=== PATIENT | female | born 1955 | race Hispanic/Latino ===

== ENCOUNTER 2018-11-24 20:08 | Emergency (ER) | payer MEDICARE ==
[2018-11-24 20:52] LABS: BASOPHILS % (AUTO) 0.9 % (0.0-5.0); EOSINOPHILS % (AUTO) 2.9 % (0.0-8.0); HEMATOCRIT 45.5 % (36-48); LYMPHOCYTES % (AUTO) 31.6 % (21.0-51.0); MEAN CORPUSCULAR HEMOGLOBIN 28.5 pg (27.0-33.0); MEAN CORPUSCULAR HGB CONC 33.1 g/dL (32.0-36.0); MEAN CORPUSCULAR VOLUME 86.1 fL (79-99); MONOCYTES % (AUTO) 9.4 % (3.0-13.0); NEUTROPHILS % (AUTO) 55.2 % (40.0-77.0); PLATELET COUNT (AUTO) 172 K/uL (130-400); RED BLOOD CELL COUNT(AUTO) 5.29 MIL/uL (4.00-5.50); RED CELL DISTRIBUTION WIDTH 14.2 % (11.0-15.5); WHITE BLOOD COUNT (AUTO) 10.9 K/uL (4.8-10.8)
[2018-11-24 21:00] LABS: POTASSIUM 4.5 mmol/L (3.5-5.1)
[2018-11-24 21:02] LABS: INR 0.91 (0.85-1.15); PARTIAL THROMBOPLASTIN TIME 28.5 SEC (26.3-35.5); PROTHROMBIN TIME 9.6 SEC (9.6-11.6)
[2018-11-24] MEDS ORDERED: ASPIRIN 325 MG TABLET ONE (21:03)
[2018-11-24] MEDS ORDERED: NITROGLYCERIN 0.4 MG SL TAB SL ONE (21:03)
[2018-11-24 21:10] LABS: ALBUMIN 3.5 g/dL (3.5-5.0); BILIRUBIN,TOTAL 0.4 mg/dL (0.2-1.0); TOTAL PROTEIN, SERUM 8.3 g/dL (6.0-8.3)
[2018-11-24] MEDS ORDERED: AZITHROMYCIN 250 MG TABLET PO ONE (22:46)
== END 2018-11-24 23:04 | disposition home or self-care (01) ==
LOC: EDH 20:08
DX: J20.9 Acute bronchitis, unspecified (principal); I10 Essential (primary) hypertension; F32.9 Major depressive disorder, single episode, unspecified; Z88.0 Allergy status to penicillin
CPT/HCPCS: 36415; 71045; 80053; 82550; 83874; 84484; 85025; 85610; 85730; 93005

== ENCOUNTER → 2019-04-10 | Outpatient (CLI) | payer MEDICARE | END | disposition home or self-care (01) | LOC: OIH 10:17 | PROVIDERS: ATTEND Family Medicine | DX: R05 Cough (principal); M47.815 Spondylosis without myelopathy or radiculopathy, thoracolumbar region | CPT/HCPCS: 71046 ==

== ENCOUNTER 2019-10-15 14:20 | Emergency (ER) | payer MEDICARE ==
[2019-10-15 14:58] LABS: EOSINOPHILS % (AUTO) 16.8 % (0.0-8.0); HEMATOCRIT 44.5 % (36-48); LYMPHOCYTES % (AUTO) 20.7 % (21.0-51.0); MEAN CORPUSCULAR HEMOGLOBIN 27.2 pg (27.0-33.0); MEAN CORPUSCULAR HGB CONC 32.8 g/dL (32.0-36.0); MONOCYTES % (AUTO) 14.2 % (3.0-13.0); NEUTROPHILS % (AUTO) 47.1 % (40.0-77.0); PLATELET COUNT (AUTO) 171 K/uL (130-400); RED BLOOD CELL COUNT(AUTO) 5.36 MIL/uL (4.00-5.50); RED CELL DISTRIBUTION WIDTH 13.1 % (11.0-15.5); WHITE BLOOD COUNT (AUTO) 8.3 K/uL (4.8-10.8)
[2019-10-15 15:17] LABS: CREATININE 1.1 mg/dL (0.5-1.5); POTASSIUM 3.7 mmol/L (3.5-5.1)
[2019-10-15 15:22] LABS: ALBUMIN 3.6 g/dL (3.5-5.0); BILIRUBIN,TOTAL 0.4 mg/dL (0.2-1.0); TOTAL PROTEIN, SERUM 8.4 g/dL (6.0-8.3)
[2019-10-15] MEDS ORDERED: OSELTAMIVIR PHOSPHATE 75 MG CAP ONE (15:32)
[2019-10-15] MEDS ORDERED: ACETAMINOPHEN 325 MG TAB ONE (15:32)
== END 2019-10-15 15:42 | disposition home or self-care (01) ==
LOC: EDH 14:20
DX: J10.1 Influenza due to other identified influenza virus with other respiratory manifestations (principal); I10 Essential (primary) hypertension; M19.90 Unspecified osteoarthritis, unspecified site; F32.9 Major depressive disorder, single episode, unspecified
CPT/HCPCS: 36415; 71046; 80053; 85025; 87804

== ENCOUNTER 2020-09-01 11:25 | Inpatient (IN) | payer MEDICARE ==
[~2020-09-01] VITALS: Ht 162.6 cm; Wt 72.6 kg
[2020-09-01 12:18] LABS: BASOPHILS % (AUTO) 0.3 % (0.0-5.0); EOSINOPHILS % (AUTO) 0.3 % (0.0-8.0); HEMATOCRIT 45.2 % (36-48); LYMPHOCYTES % (AUTO) 26.9 % (21.0-51.0); MEAN CORPUSCULAR HEMOGLOBIN 27.7 pg (27.0-33.0); MEAN CORPUSCULAR HGB CONC 33.2 g/dL (32.0-36.0); MEAN CORPUSCULAR VOLUME 83.5 fL (79-99); MONOCYTES % (AUTO) 11.3 % (3.0-13.0); PLATELET COUNT (AUTO) 129 K/uL (130-400); RED BLOOD CELL COUNT(AUTO) 5.41 MIL/uL (4.00-5.50); RED CELL DISTRIBUTION WIDTH 12.9 % (11.0-15.5)
[2020-09-01 12:29] LABS: CARBON DIOXIDE 25 mmol/L (21-32); CHLORIDE 96 mmol/L (101-111); CREATININE 1.1 mg/dL (0.5-1.5); GLOMERULAR FILTR. RATE CALC 53 mL/min (>60); GLUCOSE,RANDOM 99 mg/dL (70-105); POTASSIUM 3.6 mmol/L (3.5-5.1); SODIUM SERUM 134 mmol/L (136-145); UREA NITROGEN, BLOOD 14 mg/dL (7-18)
[2020-09-01 12:32] LABS: INR 1.01 (0.85-1.15); PROTHROMBIN TIME 10.8 SEC (9.6-11.6)
[2020-09-01 12:33] LABS: PARTIAL THROMBOPLASTIN TIME 31.4 SEC (26.3-35.5)
[2020-09-01 12:38] LABS: BILIRUBIN,URINE Negative (NEGATIVE); COLOR,URINE Yellow (YELLOW); GLUCOSE, URINE (UA) Negative (NEGATIVE); KETONES,URINE 15 mg/dL (NEGATIVE); LEUKOCYTE ESTERASE ,URINE Trace (NEGATIVE); NITRATE,URINE Negative (NEGATIVE); OCCULT BLOOD,URINE Large (NEGATIVE); PH,URINE 5.5 (5.0-8.0); PROTEIN,URINE POS 2+ mg/dL (NEGATIVE)
[2020-09-01 12:40] LABS: ALANINE AMINOTRANSFERASE 38 U/L (12-78); ALBUMIN 3.3 g/dL (3.5-5.0); ASPARTATE AMINOTRANSFERASE 46 U/L (10-37); BILIRUBIN,TOTAL 0.5 mg/dL (0.2-1.0); CREATINE KINASE, TOTAL 204 U/L (21-232); MYOGLOBIN 81 ng/mL (10-92); TOTAL PROTEIN, SERUM 7.9 g/dL (6.0-8.3); TROPONIN I < 0.04 ng/mL (0.00-0.06)
[2020-09-01 13:05] LABS: APPEARANCE,URINE CLEAR (CLEAR)
[2020-09-01 13:18] LABS: BACTERIA,URINE Few /HPF (None Seen); MUCUS,URINE Moderate LPF (None Seen); WBC,URINE 0-1 /HPF (0-1)
[2020-09-01 13:18] LABS: ABG BASE EXCESS -2.7 mmol/L (-2.0-3.0); ABG HCO3 20.7 mmol/L (21.0-28.0); ABG OXYGEN SATURATION 95.8 % (95.0-99.0); ABG PCO2 32 mmHg (32-45)
[2020-09-01] MEDS ORDERED: ALBUTEROL INHALER 90MCG/INH IH ONE (13:37)
[2020-09-01] MEDS ORDERED: DEXAMETHASONE SOD PHOSPHATE 10MG/ML 1ML VIAL ONE (13:38)
[2020-09-01] MEDS ORDERED: LEVOFLOXACIN 500 MG/D5W 100 ML 100 ML ONE (13:38)
[2020-09-01] MEDS ORDERED: 0.9%NACL 1000ML 1,000 ML IV ONE (15:34)
[2020-09-01] MEDS ORDERED: LABETALOL 20MG SYG IV PRN (19:00)
[2020-09-01] MEDS ORDERED: ACETAMINOPHEN 325 MG TAB PO PRN (19:00)
[2020-09-01] MEDS ORDERED: ACETAMINOPHEN 650 MG SUPPOSITORY RC PRN (19:00)
[2020-09-01] MEDS ORDERED: ONDANSETRON 4MG INJ IVP PRN (19:00)
[2020-09-01] MEDS ORDERED: CLONIDINE HCL 0.1 MG TABLET PO PRN (19:00)
[2020-09-01 20:32] LABS: CREATINE KINASE, TOTAL 216 U/L (21-232); MYOGLOBIN 77 ng/mL (10-92); TROPONIN I < 0.04 ng/mL (0.00-0.06)
[2020-09-01] MEDS: 0.9%NACL 1000ML 1,000 ML IV SCH (22:45)
[2020-09-01] MEDS: LEVOFLOXACIN 500 MG/D5W 100 ML 100 ML IV SCH (23:30)
[2020-09-02] MEDS ORDERED: METRONIDAZOLE 500MG/100ML BAG 100 ML ONE ×3 (00:22→22:45)
[2020-09-02 05:55] LABS: BASOPHILS % (AUTO) 0.3 % (0.0-5.0); HEMATOCRIT 47.8 % (36-48); LYMPHOCYTES % (AUTO) 23.7 % (21.0-51.0); MEAN CORPUSCULAR HEMOGLOBIN 27.1 pg (27.0-33.0); MEAN CORPUSCULAR HGB CONC 32.8 g/dL (32.0-36.0); MEAN CORPUSCULAR VOLUME 82.4 fL (79-99); MONOCYTES % (AUTO) 9.4 % (3.0-13.0); NEUTROPHILS % (AUTO) 66.3 % (40.0-77.0); PLATELET COUNT (AUTO) 142 K/uL (130-400); RED CELL DISTRIBUTION WIDTH 12.8 % (11.0-15.5); WHITE BLOOD COUNT (AUTO) 3.7 K/uL (4.8-10.8)
[2020-09-02 07:20] LABS: CARBON DIOXIDE 24 mmol/L (21-32); CHLORIDE 102 mmol/L (101-111); CREATINE KINASE, TOTAL 189 U/L (21-232); CREATININE 0.9 mg/dL (0.5-1.5); GLOMERULAR FILTR. RATE CALC 66 mL/min (>60); GLUCOSE,RANDOM 122 mg/dL (70-105); MYOGLOBIN 79 ng/mL (10-92); PHOSPHORUS 3.4 mg/dL (2.5-4.9); POTASSIUM 4.7 mmol/L (3.5-5.1); SODIUM SERUM 138 mmol/L (136-145); TROPONIN I < 0.04 ng/mL (0.00-0.06); UREA NITROGEN, BLOOD 17 mg/dL (7-18)
[2020-09-02] MEDS: 0.9%NACL 1000ML 1,000 ML IV SCH ×2 (08:45→18:45)
[2020-09-02] MEDS ORDERED: ASCORBIC ACID 500 MG TAB ONE (09:12)
[2020-09-02] MEDS ORDERED: ASPIRIN 81MG CHEW TAB ONE (09:12)
[2020-09-02] MEDS ORDERED: PANTOPRAZOLE 40 MG TAB DR ONE (09:12)
[2020-09-02] MEDS ORDERED: ENOXAPARIN SODIUM 40 MG/0.4 ML SYRINGE SQ ONE (09:12)
[2020-09-02] MEDS ORDERED: DEXAMETHASONE SOD PHOSPHATE 4 MG/ML 1ML VIAL ONE (13:23)
[2020-09-02] MEDS ORDERED: ACETAMINOPHEN 325 MG TAB ONE (13:25)
[2020-09-02] MEDS: METRONIDAZOLE 500MG/100ML BAG 100 ML IVPB SCH ×2 (14:00→22:00)
[2020-09-02] MEDS ORDERED: INSULIN HUMULIN R 100 UNIT/ML 3ML ONE (20:32)
[2020-09-03] MEDS ORDERED: GUAIFENESIN SUGAR-FREE 100 MG/5 ML UDCUP ONE (03:36)
[2020-09-03] MEDS ORDERED: ACETAMINOPHEN 325 MG TAB ONE ×2 (03:52→09:00)
[2020-09-03 04:00] VITALS: BP 121/71
[2020-09-03] MEDS: 0.9%NACL 1000ML 1,000 ML IV SCH (04:45)
[2020-09-03 05:40] LABS: HEMATOCRIT 44.2 % (36-48); MEAN CORPUSCULAR HEMOGLOBIN 27.3 pg (27.0-33.0); MEAN CORPUSCULAR HGB CONC 33.5 g/dL (32.0-36.0); MEAN CORPUSCULAR VOLUME 81.4 fL (79-99); RED BLOOD CELL COUNT(AUTO) 5.43 MIL/uL (4.00-5.50); RED CELL DISTRIBUTION WIDTH 12.8 % (11.0-15.5); WHITE BLOOD COUNT (AUTO) 9.9 K/uL (4.8-10.8)
[2020-09-03 05:55] LABS: POTASSIUM 3.6 mmol/L (3.5-5.1)
[2020-09-03] MEDS: METRONIDAZOLE 500MG/100ML BAG 100 ML IVPB SCH ×4 (06:00→21:27)
[2020-09-03 11:46] VITALS: BP 115/57
[2020-09-03] MEDS: ASPIRIN 81MG CHEW TAB PO SCH ×2 (14:23→14:24)
[2020-09-03] MEDS: ENOXAPARIN SODIUM 40 MG/0.4 ML SYRINGE SQ SCH ×2 (14:24→14:28)
[2020-09-03] MEDS: DEXAMETHASONE 4 MG TAB PO SCH (14:24)
[2020-09-03] MEDS: PANTOPRAZOLE 40 MG TAB DR PO SCH ×2 (14:24→14:25)
[2020-09-03] MEDS: ASCORBIC ACID 500 MG TAB PO SCH ×2 (14:25→14:28)
[2020-09-03 19:00] VITALS: BP 115/63
[2020-09-03 19:02] VITALS: BP 121/71
[2020-09-03] MEDS: INSULIN HUMULIN R 100 UNIT/ML 3ML SQ SCH (21:00)
[2020-09-03] MEDS: LEVOFLOXACIN 500 MG/D5W 100 ML 100 ML IV SCH (22:56)
[2020-09-04] VITALS: BP 105/52
[2020-09-04 04:00] VITALS: BP 147/84
[2020-09-04] MEDS: 0.9%NACL 1000ML 1,000 ML IV SCH ×2 (04:00→10:54)
[2020-09-04] MEDS: METRONIDAZOLE 500MG/100ML BAG 100 ML IVPB SCH ×3 (05:28→22:03)
[2020-09-04] MEDS: GUAIFENESIN SUGAR-FREE 100 MG/5 ML UDCUP PO PRN ×2 (05:28→23:42)
[2020-09-04 06:12] LABS: CREATININE 0.8 mg/dL (0.5-1.5); POTASSIUM 3.6 mmol/L (3.5-5.1)
[2020-09-04 06:14] LABS: HEMATOCRIT 42.5 % (36-48); MEAN CORPUSCULAR HGB CONC 33.2 g/dL (32.0-36.0); MEAN CORPUSCULAR VOLUME 81.4 fL (79-99); RED BLOOD CELL COUNT(AUTO) 5.22 MIL/uL (4.00-5.50); RED CELL DISTRIBUTION WIDTH 12.8 % (11.0-15.5); WHITE BLOOD COUNT (AUTO) 6.7 K/uL (4.8-10.8)
[2020-09-04] MEDS: INSULIN HUMULIN R 100 UNIT/ML 3ML SQ SCH ×4 (07:22→21:00)
[2020-09-04 08:00] VITALS: BP 146/76
[2020-09-04] MEDS: ENOXAPARIN SODIUM 40 MG/0.4 ML SYRINGE SQ SCH (09:50)
[2020-09-04] MEDS: ASCORBIC ACID 500 MG TAB PO SCH (09:50)
[2020-09-04] MEDS: ASPIRIN 81MG CHEW TAB PO SCH (09:50)
[2020-09-04] MEDS: PANTOPRAZOLE 40 MG TAB DR PO SCH (09:50)
[2020-09-04] MEDS: DEXAMETHASONE 4 MG TAB PO SCH (09:50)
[2020-09-04 12:00] VITALS: BP_SYST 127; BP_SYST 146; BP_DIAS 67; BP_DIAS 76
[2020-09-04 18:40] VITALS: BP 145/60
[2020-09-04 21:00] VITALS: BP 141/82
[2020-09-05] VITALS: BP 118/57
[2020-09-05 04:00] VITALS: BP 128/63
[2020-09-05] MEDS: GUAIFENESIN SUGAR-FREE 100 MG/5 ML UDCUP PO PRN ×2 (05:29→12:48)
[2020-09-05] MEDS: METRONIDAZOLE 500MG/100ML BAG 100 ML IVPB SCH ×3 (05:29→21:22)
[2020-09-05] MEDS: INSULIN HUMULIN R 100 UNIT/ML 3ML SQ SCH ×4 (06:15→21:00)
[2020-09-05] MEDS: ASCORBIC ACID 500 MG TAB PO SCH (10:18)
[2020-09-05] MEDS: PANTOPRAZOLE 40 MG TAB DR PO SCH (10:18)
[2020-09-05] MEDS: ASPIRIN 81MG CHEW TAB PO SCH (10:18)
[2020-09-05] MEDS: DEXAMETHASONE 4 MG TAB PO SCH (10:19)
[2020-09-05] MEDS: ENOXAPARIN SODIUM 40 MG/0.4 ML SYRINGE SQ SCH (10:19)
[2020-09-05 12:14] VITALS: BP 124/65
[2020-09-05 16:00] VITALS: BP 126/65
[2020-09-05 20:00] VITALS: BP 128/59
[2020-09-05] MEDS: LEVOFLOXACIN 500 MG/D5W 100 ML 100 ML IV SCH (23:12)
[2020-09-06] VITALS: BP 132/55
[2020-09-06 04:00] VITALS: BP 127/59
[2020-09-06] MEDS: METRONIDAZOLE 500MG/100ML BAG 100 ML IVPB SCH (06:02)
[2020-09-06] MEDS: INSULIN HUMULIN R 100 UNIT/ML 3ML SQ SCH ×4 (06:36→20:05)
[2020-09-06 08:32] VITALS: BP 138/70
[2020-09-06] MEDS: ASCORBIC ACID 500 MG TAB PO SCH (09:57)
[2020-09-06] MEDS: PANTOPRAZOLE 40 MG TAB DR PO SCH (09:57)
[2020-09-06] MEDS: DEXAMETHASONE 4 MG TAB PO SCH (09:57)
[2020-09-06] MEDS: ASPIRIN 81MG CHEW TAB PO SCH (09:58)
[2020-09-06] MEDS: ENOXAPARIN SODIUM 40 MG/0.4 ML SYRINGE SQ SCH (10:11)
[2020-09-06 11:26] LABS: ABG BASE EXCESS 0.6 mmol/L (-2.0-3.0); ABG HCO3 23.6 mmol/L (21.0-28.0); ABG OXYGEN SATURATION 85.4 % (95.0-99.0); ABG PCO2 33 mmHg (32-45)
[2020-09-06 11:49] LABS: HEMATOCRIT 40.6 % (36-48); MEAN CORPUSCULAR HEMOGLOBIN 27.6 pg (27.0-33.0); MEAN CORPUSCULAR VOLUME 81.2 fL (79-99); RED CELL DISTRIBUTION WIDTH 13.2 % (11.0-15.5); WHITE BLOOD COUNT (AUTO) 12.6 K/uL (4.8-10.8)
[2020-09-06 12:00] VITALS: BP 129/61
[2020-09-06 12:07] LABS: CREATININE 0.8 mg/dL (0.5-1.5); POTASSIUM 3.3 mmol/L (3.5-5.1)
[2020-09-06] MEDS: AZITHROMYCIN 500MG+NS 250ML 250 ML IV SCH (12:43)
[2020-09-06] MEDS: ALBUTEROL INHALER 90MCG/INH IH SCH ×3 (13:16→21:12)
[2020-09-06] MEDS: BENZONATATE 100 MG CAPSULE PO SCH ×2 (15:46→22:58)
[2020-09-06 16:00] VITALS: BP 130/72
[2020-09-06 20:00] VITALS: BP 133/70
[2020-09-06] MEDS: DEXAMETHASONE SOD PHOSPHATE 4 MG/ML 1ML VIAL IVP SCH (21:12)
[2020-09-07] VITALS: BP 145/89
[2020-09-07] MEDS: FUROSEMIDE 20MG VIAL IV SCH ×3 (02:30→21:36)
[2020-09-07] MEDS: ALBUTEROL INHALER 90MCG/INH IH SCH ×6 (02:30→21:37)
[2020-09-07 03:31] LABS: ABG BASE EXCESS -1.8 mmol/L (-2.0-3.0); ABG HCO3 20.9 mmol/L (21.0-28.0); ABG OXYGEN SATURATION 90.8 % (95.0-99.0); ABG PCO2 31 mmHg (32-45)
[2020-09-07 04:00] VITALS: BP 138/89
[2020-09-07 05:18] LABS: HEMATOCRIT 42.5 % (36-48); MEAN CORPUSCULAR HEMOGLOBIN 27.1 pg (27.0-33.0); MEAN CORPUSCULAR HGB CONC 33.2 g/dL (32.0-36.0); MEAN CORPUSCULAR VOLUME 81.6 fL (79-99); RED BLOOD CELL COUNT(AUTO) 5.21 MIL/uL (4.00-5.50); RED CELL DISTRIBUTION WIDTH 13.1 % (11.0-15.5); WHITE BLOOD COUNT (AUTO) 10.3 K/uL (4.8-10.8)
[2020-09-07 05:27] LABS: CREATININE 0.5 mg/dL (0.5-1.5); POTASSIUM 3.6 mmol/L (3.5-5.1)
[2020-09-07] MEDS: INSULIN HUMULIN R 100 UNIT/ML 3ML SQ SCH ×4 (06:26→20:36)
[2020-09-07 08:00] VITALS: BP 133/77
[2020-09-07] MEDS: PANTOPRAZOLE 40 MG TAB DR PO SCH (09:00)
[2020-09-07] MEDS: BENZONATATE 100 MG CAPSULE PO SCH ×4 (09:00→17:47)
[2020-09-07] MEDS: ASCORBIC ACID 500 MG TAB PO SCH (09:00)
[2020-09-07] MEDS: DEXAMETHASONE SOD PHOSPHATE 4 MG/ML 1ML VIAL IVP SCH (09:00)
[2020-09-07] MEDS: ENOXAPARIN SODIUM 40 MG/0.4 ML SYRINGE SQ SCH (09:00)
[2020-09-07] MEDS: ASPIRIN 81MG CHEW TAB PO SCH (09:00)
[2020-09-07] MEDS: AZITHROMYCIN 500MG+NS 250ML 250 ML IV SCH (11:30)
[2020-09-07] MEDS: FLUTICASONE/VILANTEROL 1 EACH AER.POW.BA IH SCH (12:36)
[2020-09-07] MEDS: SOLU-MEDROL 125MG VIAL IVP SCH ×2 (13:16→17:43)
[2020-09-07 16:00] VITALS: BP 151/67
[2020-09-07 19:00] VITALS: BP 121/76
[2020-09-07] MEDS: LEVOFLOXACIN 500 MG/D5W 100 ML 100 ML IV SCH (22:37)
[2020-09-08] VITALS: BP 125/72
[2020-09-08] MEDS: BENZONATATE 100 MG CAPSULE PO SCH ×6 (00:44→19:39)
[2020-09-08] MEDS: SOLU-MEDROL 125MG VIAL IVP SCH ×4 (00:44→19:40)
[2020-09-08] MEDS: ALBUTEROL INHALER 90MCG/INH IH SCH ×6 (01:29→21:09)
[2020-09-08 04:00] VITALS: BP 126/70
[2020-09-08 04:24] LABS: ABG BASE EXCESS 4.9 mmol/L (-2.0-3.0); ABG HCO3 26.4 mmol/L (21.0-28.0); ABG OXYGEN SATURATION 99.5 % (95.0-99.0); ABG PCO2 30 mmHg (32-45)
[2020-09-08 05:56] LABS: HEMATOCRIT 43.1 % (36-48); MEAN CORPUSCULAR HEMOGLOBIN 27.1 pg (27.0-33.0); MEAN CORPUSCULAR HGB CONC 33.4 g/dL (32.0-36.0); RED BLOOD CELL COUNT(AUTO) 5.32 MIL/uL (4.00-5.50); RED CELL DISTRIBUTION WIDTH 13.2 % (11.0-15.5)
[2020-09-08 06:13] LABS: CREATININE 0.9 mg/dL (0.5-1.5); MAGNESIUM 2.1 mg/dL (1.80-2.40); PHOSPHORUS 3.7 mg/dL (2.5-4.9); POTASSIUM 3.3 mmol/L (3.5-5.1)
[2020-09-08] MEDS ORDERED: POTASSIUM CHLORIDE 10% ELIXIR 20 MEQ/15 ML UDCUP PO PRN (07:00)
[2020-09-08] MEDS ORDERED: LIDOCAINE HCL-MPF 1% 2ML VIAL IV PRN (07:00)
[2020-09-08] MEDS ORDERED: POTASSIUM CHLORIDE 20MEQ/100ML 100 ML IV PRN (07:00)
[2020-09-08] MEDS: INSULIN HUMULIN R 100 UNIT/ML 3ML SQ SCH ×4 (07:26→21:04)
[2020-09-08] MEDS: PANTOPRAZOLE 40 MG TAB DR PO SCH (08:05)
[2020-09-08] MEDS: ASPIRIN 81MG CHEW TAB PO SCH (08:05)
[2020-09-08] MEDS: ASCORBIC ACID 500 MG TAB PO SCH (08:05)
[2020-09-08] MEDS: ENOXAPARIN SODIUM 40 MG/0.4 ML SYRINGE SQ SCH (08:06)
[2020-09-08] MEDS: FLUTICASONE/VILANTEROL 1 EACH AER.POW.BA IH SCH (08:08)
[2020-09-08 09:53] VITALS: BP 104/53
[2020-09-08] MEDS: FUROSEMIDE 20MG VIAL IV SCH ×2 (11:01→21:18)
[2020-09-08 12:51] VITALS: BP 160/66
[2020-09-08] MEDS: KCL 20 MEQ ERTAB PO PRN ×3 (13:00→21:22)
[2020-09-08] MEDS: AZITHROMYCIN 500MG+NS 250ML 250 ML IV SCH (13:01)
[2020-09-08 17:25] VITALS: BP 138/62
[2020-09-08 19:00] VITALS: BP 139/76
[2020-09-09] VITALS: BP 138/60
[2020-09-09] MEDS: BENZONATATE 100 MG CAPSULE PO SCH ×5 (00:32→18:13)
[2020-09-09] MEDS: SOLU-MEDROL 125MG VIAL IVP SCH ×4 (00:38→18:14)
[2020-09-09] MEDS: ALBUTEROL INHALER 90MCG/INH IH SCH ×6 (02:10→21:35)
[2020-09-09 03:45] LABS: ABG BASE EXCESS 4.6 mmol/L (-2.0-3.0); ABG HCO3 28.5 mmol/L (21.0-28.0); ABG OXYGEN SATURATION 98.3 % (95.0-99.0); ABG PCO2 40 mmHg (32-45)
[2020-09-09 04:00] VITALS: BP 140/64
[2020-09-09] MEDS: INSULIN HUMULIN R 100 UNIT/ML 3ML SQ SCH ×4 (06:24→20:51)
[2020-09-09 06:28] LABS: HEMATOCRIT 44.7 % (36-48); MEAN CORPUSCULAR HEMOGLOBIN 27.4 pg (27.0-33.0); MEAN CORPUSCULAR HGB CONC 33.3 g/dL (32.0-36.0); MEAN CORPUSCULAR VOLUME 82.3 fL (79-99); RED BLOOD CELL COUNT(AUTO) 5.43 MIL/uL (4.00-5.50); RED CELL DISTRIBUTION WIDTH 13.2 % (11.0-15.5); WHITE BLOOD COUNT (AUTO) 13.2 K/uL (4.8-10.8)
[2020-09-09 06:53] LABS: MAGNESIUM 2.5 mg/dL (1.80-2.40); PHOSPHORUS 3.5 mg/dL (2.5-4.9); POTASSIUM 3.8 mmol/L (3.5-5.1)
[2020-09-09] MEDS: PANTOPRAZOLE 40 MG TAB DR PO SCH (08:37)
[2020-09-09] MEDS: ASCORBIC ACID 500 MG TAB PO SCH (08:37)
[2020-09-09] MEDS: ENOXAPARIN SODIUM 40 MG/0.4 ML SYRINGE SQ SCH (08:38)
[2020-09-09] MEDS: ASPIRIN 81MG CHEW TAB PO SCH (08:38)
[2020-09-09] MEDS: FLUTICASONE/VILANTEROL 1 EACH AER.POW.BA IH SCH (08:39)
[2020-09-09 09:27] VITALS: BP 121/86
[2020-09-09] MEDS: KCL 20 MEQ ERTAB PO PRN ×2 (09:52→12:24)
[2020-09-09] MEDS: FUROSEMIDE 20MG VIAL IV SCH ×2 (09:53→22:26)
[2020-09-09] MEDS: AZITHROMYCIN 500MG+NS 250ML 250 ML IV SCH (12:22)
[2020-09-09 12:57] VITALS: BP 114/53
[2020-09-09 16:53] VITALS: BP 120/50
[2020-09-09 19:00] VITALS: BP 126/64
[2020-09-09] MEDS: LEVOFLOXACIN 500 MG/D5W 100 ML 100 ML IV SCH (22:40)
[2020-09-10] VITALS: BP 137/56
[2020-09-10] MEDS: SOLU-MEDROL 125MG VIAL IVP SCH ×4 (00:15→18:47)
[2020-09-10] MEDS: BENZONATATE 100 MG CAPSULE PO SCH ×3 (02:34→18:43)
[2020-09-10] MEDS: ALBUTEROL INHALER 90MCG/INH IH SCH ×6 (02:34→21:24)
[2020-09-10 04:00] VITALS: BP 132/65
[2020-09-10 04:36] LABS: ABG BASE EXCESS 4.4 mmol/L (-2.0-3.0); ABG OXYGEN SATURATION 94.8 % (95.0-99.0); ABG PCO2 38 mmHg (32-45)
[2020-09-10 06:02] LABS: HEMATOCRIT 44.4 % (36-48); MEAN CORPUSCULAR HGB CONC 32.7 g/dL (32.0-36.0); MEAN CORPUSCULAR VOLUME 82.5 fL (79-99); RED BLOOD CELL COUNT(AUTO) 5.38 MIL/uL (4.00-5.50); RED CELL DISTRIBUTION WIDTH 13.2 % (11.0-15.5); WHITE BLOOD COUNT (AUTO) 13.2 K/uL (4.8-10.8)
[2020-09-10 06:19] LABS: CREATININE 0.8 mg/dL (0.5-1.5); MAGNESIUM 2.5 mg/dL (1.80-2.40); PHOSPHORUS 3.2 mg/dL (2.5-4.9); POTASSIUM 3.9 mmol/L (3.5-5.1)
[2020-09-10] MEDS: INSULIN HUMULIN R 100 UNIT/ML 3ML SQ SCH ×4 (06:28→21:12)
[2020-09-10 08:40] VITALS: BP 122/84
[2020-09-10] MEDS: FLUTICASONE/VILANTEROL 1 EACH AER.POW.BA IH SCH (08:57)
[2020-09-10] MEDS: ASCORBIC ACID 500 MG TAB PO SCH (08:57)
[2020-09-10] MEDS: PANTOPRAZOLE 40 MG TAB DR PO SCH (08:58)
[2020-09-10] MEDS: ASPIRIN 81MG CHEW TAB PO SCH (08:58)
[2020-09-10] MEDS: ENOXAPARIN SODIUM 40 MG/0.4 ML SYRINGE SQ SCH (08:59)
[2020-09-10] MEDS: FUROSEMIDE 20MG VIAL IV SCH ×2 (09:00→21:20)
[2020-09-10] MEDS: AZITHROMYCIN 500MG+NS 250ML 250 ML IV SCH (12:38)
[2020-09-10 12:41] VITALS: BP 121/80
[2020-09-10 18:45] VITALS: BP 131/87
[2020-09-10 20:00] VITALS: BP 137/77
[2020-09-11] VITALS (7 sets, daily range): BP systolic 99–141; BP diastolic 55–80
[2020-09-11] MEDS: SOLU-MEDROL 125MG VIAL IVP SCH ×4 (01:30→18:28)
[2020-09-11] MEDS: ALBUTEROL INHALER 90MCG/INH IH SCH ×6 (01:32→21:10)
[2020-09-11] MEDS: BENZONATATE 100 MG CAPSULE PO SCH ×3 (03:59→18:28)
[2020-09-11 04:29] LABS: ABG BASE EXCESS 2.9 mmol/L (-2.0-3.0); ABG HCO3 25.1 mmol/L (21.0-28.0); ABG OXYGEN SATURATION 95.8 % (95.0-99.0); ABG PCO2 32 mmHg (32-45)
[2020-09-11 05:42] LABS: HEMATOCRIT 43.7 % (36-48); MEAN CORPUSCULAR HEMOGLOBIN 27.3 pg (27.0-33.0); MEAN CORPUSCULAR HGB CONC 33.4 g/dL (32.0-36.0); MEAN CORPUSCULAR VOLUME 81.7 fL (79-99); RED BLOOD CELL COUNT(AUTO) 5.35 MIL/uL (4.00-5.50); RED CELL DISTRIBUTION WIDTH 12.8 % (11.0-15.5)
[2020-09-11 06:34] LABS: ALBUMIN 2.4 g/dL (3.5-5.0); BILIRUBIN,TOTAL 0.7 mg/dL (0.2-1.0); CREATININE 0.8 mg/dL (0.5-1.5); TOTAL PROTEIN, SERUM 6.4 g/dL (6.0-8.3)
[2020-09-11] MEDS: INSULIN HUMULIN R 100 UNIT/ML 3ML SQ SCH ×4 (06:35→20:30)
[2020-09-11] MEDS: ASCORBIC ACID 500 MG TAB PO SCH (08:24)
[2020-09-11] MEDS: ASPIRIN 81MG CHEW TAB PO SCH (08:24)
[2020-09-11] MEDS: ENOXAPARIN SODIUM 40 MG/0.4 ML SYRINGE SQ SCH (08:24)
[2020-09-11] MEDS: PANTOPRAZOLE 40 MG TAB DR PO SCH (08:24)
[2020-09-11] MEDS: FLUTICASONE/VILANTEROL 1 EACH AER.POW.BA IH SCH (08:25)
[2020-09-11] MEDS: FUROSEMIDE 20MG VIAL IV SCH ×2 (11:48→22:44)
[2020-09-11] MEDS: NYSTATIN 15 GM POWDER TP SCH (21:10)
[2020-09-11] MEDS: LEVOFLOXACIN 500 MG/D5W 100 ML 100 ML IV SCH (22:44)
[2020-09-12] MEDS: ALBUTEROL INHALER 90MCG/INH IH SCH ×6 (01:09→22:15)
[2020-09-12] MEDS: SOLU-MEDROL 125MG VIAL IVP SCH ×4 (01:09→18:28)
[2020-09-12] MEDS: BENZONATATE 100 MG CAPSULE PO SCH ×3 (02:26→18:28)
[2020-09-12 03:58] VITALS: BP 112/72
[2020-09-12 05:50] LABS: CREATININE 0.9 mg/dL (0.5-1.5)
[2020-09-12] MEDS: INSULIN HUMULIN R 100 UNIT/ML 3ML SQ SCH ×4 (06:51→20:27)
[2020-09-12 08:00] VITALS: BP 138/80
[2020-09-12] MEDS ORDERED: DRONABINOL 2.5 MG CAP PO ONE (08:00)
[2020-09-12] MEDS: ENOXAPARIN SODIUM 40 MG/0.4 ML SYRINGE SQ SCH (08:27)
[2020-09-12] MEDS: ASCORBIC ACID 500 MG TAB PO SCH (08:27)
[2020-09-12] MEDS: ASPIRIN 81MG CHEW TAB PO SCH (08:27)
[2020-09-12] MEDS: PANTOPRAZOLE 40 MG TAB DR PO SCH (08:27)
[2020-09-12] MEDS: NYSTATIN 15 GM POWDER TP SCH ×3 (08:28→20:29)
[2020-09-12] MEDS: FLUTICASONE/VILANTEROL 1 EACH AER.POW.BA IH SCH (08:28)
[2020-09-12] MEDS: FUROSEMIDE 20MG VIAL IV SCH ×2 (11:25→22:15)
[2020-09-12 12:00] VITALS: BP 125/65
[2020-09-12 16:00] VITALS: BP 124/65
[2020-09-12 20:00] VITALS: BP 112/58
[2020-09-12 23:56] VITALS: BP 114/75
[2020-09-13 00:52] LABS: ABG BASE EXCESS 6.5 mmol/L (-2.0-3.0); ABG HCO3 30.6 mmol/L (21.0-28.0); ABG OXYGEN SATURATION 97.5 % (95.0-99.0); ABG PCO2 42 mmHg (32-45)
[2020-09-13] MEDS: SOLU-MEDROL 125MG VIAL IVP SCH ×3 (02:00→12:56)
[2020-09-13] MEDS: ALBUTEROL INHALER 90MCG/INH IH SCH ×5 (02:02→18:09)
[2020-09-13] MEDS: BENZONATATE 100 MG CAPSULE PO SCH ×2 (02:03→12:53)
[2020-09-13 03:36] VITALS: BP 156/89
[2020-09-13 04:29] LABS: HEMATOCRIT 46.2 % (36-48); MEAN CORPUSCULAR HGB CONC 33.1 g/dL (32.0-36.0); MEAN CORPUSCULAR VOLUME 81.6 fL (79-99); RED BLOOD CELL COUNT(AUTO) 5.66 MIL/uL (4.00-5.50); RED CELL DISTRIBUTION WIDTH 12.7 % (11.0-15.5); WHITE BLOOD COUNT (AUTO) 14.6 K/uL (4.8-10.8)
[2020-09-13 04:49] LABS: CREATININE 0.9 mg/dL (0.5-1.5); CRP QUANTITATIVE 7.7 mg/L (0.00-9.0); POTASSIUM 4.4 mmol/L (3.5-5.1)
[2020-09-13] MEDS: INSULIN HUMULIN R 100 UNIT/ML 3ML SQ SCH ×3 (06:07→16:30)
[2020-09-13] MEDS: ASPIRIN 81MG CHEW TAB PO SCH (09:11)
[2020-09-13] MEDS: PANTOPRAZOLE 40 MG TAB DR PO SCH (09:11)
[2020-09-13] MEDS: FUROSEMIDE 20MG VIAL IV SCH (09:11)
[2020-09-13] MEDS: ASCORBIC ACID 500 MG TAB PO SCH (09:11)
[2020-09-13] MEDS: ENOXAPARIN SODIUM 40 MG/0.4 ML SYRINGE SQ SCH (09:12)
[2020-09-13] MEDS: NYSTATIN 15 GM POWDER TP SCH ×2 (09:24→14:00)
[2020-09-13] MEDS: FLUTICASONE/VILANTEROL 1 EACH AER.POW.BA IH SCH (09:24)
[2020-09-13 12:28] VITALS: BP 120/58
[2020-09-13 17:48] VITALS: BP 123/62
== END 2020-09-13 20:50 | DRG 177 ==
LOC: EDH 11:25 → EDHIP 18:46 → OBSVTOIN 18:46 → 4AH 09-03 11:28
PROVIDERS: ADMIT Internal Medicine; ATTEND Internal Medicine
PROC: 5A0935A Assistance with Respiratory Ventilation, Less than 24 Consecutive Hours, High Flow/Velocity Cannula (ICD-10-PCS; principal; 2020-09-06)
PROC: 5A0935A Assistance with Respiratory Ventilation, Less than 24 Consecutive Hours, High Flow/Velocity Cannula (ICD-10-PCS; 2020-09-07)
PROC: 5A0935A Assistance with Respiratory Ventilation, Less than 24 Consecutive Hours, High Flow/Velocity Cannula (ICD-10-PCS; 2020-09-08)
PROC: 5A0935A Assistance with Respiratory Ventilation, Less than 24 Consecutive Hours, High Flow/Velocity Cannula (ICD-10-PCS; 2020-09-09)
PROC: 5A0935A Assistance with Respiratory Ventilation, Less than 24 Consecutive Hours, High Flow/Velocity Cannula (ICD-10-PCS; 2020-09-10)
PROC: 5A0935A Assistance with Respiratory Ventilation, Less than 24 Consecutive Hours, High Flow/Velocity Cannula (ICD-10-PCS; 2020-09-11)
PROC: 5A0935A Assistance with Respiratory Ventilation, Less than 24 Consecutive Hours, High Flow/Velocity Cannula (ICD-10-PCS; 2020-09-12)
PROC: 5A0935A Assistance with Respiratory Ventilation, Less than 24 Consecutive Hours, High Flow/Velocity Cannula (ICD-10-PCS; 2020-09-13)
DX: U07.1 COVID-19 (principal); J96.01 Acute respiratory failure with hypoxia; J12.9 Viral pneumonia, unspecified; J12.82 Pneumonia due to coronavirus disease 2019; E66.9 Obesity, unspecified; I10 Essential (primary) hypertension; M19.90 Unspecified osteoarthritis, unspecified site; F32.9 Major depressive disorder, single episode, unspecified; E66.01 Morbid (severe) obesity due to excess calories; Z68.27 Body mass index [BMI] 27.0-27.9, adult; Z88.0 Allergy status to penicillin
CPT/HCPCS: 36415; 36600; 71045; 71250; 80048; 80053; 81001; 82270; 82435; 82550; 82803; 82947; 82948; 83605; 83615; 83735; 83874; 83880; 84100; 84132; 84145; 84295; 84484; 85018; 85025; 85027; 85610; 85730; 86140; 86900; 86901; 87040; 87046; 87088; 87324; 87426; 93005; G0378; J0456; J1100; J1650; J1815; J1940; J1956; J2930; J3490; J7030; J8540; Q0167; U0003